=== PATIENT | male | born 1985 ===

== ENCOUNTER 2024-08-30 12:23 | Outpatient (CLI) | payer MEDICAID ==
[2024-08-30] MEDS ORDERED: GADOTERATE MEGLUMINE 7.5 MMOL/15 ML VIAL IV ONE (19:23)
== END 2024-08-30 23:59 | disposition home or self-care (01) ==
LOC: MRI 12:23
PROVIDERS: ATTEND Podiatrist Foot & Ankle Surgery
DX: M20.41 Other hammer toe(s) (acquired), right foot (principal); M25.471 Effusion, right ankle; M77.41 Metatarsalgia, right foot; M79.671 Pain in right foot
CPT/HCPCS: 73720; A9575